=== PATIENT | female | born 1995 | race Two or more races ===

== ENCOUNTER 2016-12-12 10:37 | Emergency (ER) | payer SELFPAY ==
[~2016-12-12] VITALS: Ht 154.9 cm; Wt 58.1 kg
[2016-12-12 11:35] LABS: BILIRUBIN,URINE NEGATIVE (NEG); GLUCOSE,URINE NEGATIVE (NEG); NITRITE,URINE NEGATIVE (NEG); PROTEIN,URINE NEGATIVE (NEG-TRACE); UROBILINOGEN,URINE 0.2 mg/dL (0.2 mg/dL)
[2016-12-12 11:38] LABS: BASO # 0.1 x10^3/uL (0.0-0.2); BASO % 1 % (0-3); EOS % 3 % (0-3); HEMATOCRIT 36.3 % (36.0-47.0); HEMOGLOBIN 11.8 g/dL (12.0-15.5); LYMPH # 1.8 x10^3/uL (1.0-4.8); LYMPH % 23 % (24-48); MEAN CORPUSCULAR HEMOGLOBIN 29 pg (25-35); MEAN CORPUSCULAR HGB CONC 33 g/dL (31-37); MEAN CORPUSCULAR VOLUME 88 fL (79-100); MONO % 7 % (0-9); NEUT % 67 % (31-73); PLATELET COUNT 252 x10^3/uL (140-400); RED BLOOD COUNT 4.11 x10^6/uL (3.50-5.40); RED CELL DISTRIBUTION WIDTH 14.3 % (11.5-14.5)
[2016-12-12 11:52] LABS: CREATININE 0.6 mg/dL (0.6-1.0); GFR 126.2
[2016-12-12 11:56] VITALS: BP 103/68
[2016-12-12 11:58] LABS: ALBUMIN 3.7 g/dL (3.4-5.0); ALBUMIN/GLOBULIN RATIO 1.1 (1.0-1.7); TOTAL BILIRUBIN 0.3 mg/dL (0.2-1.0); TOTAL PROTEIN 7.1 g/dL (6.4-8.2)
[2016-12-12] MEDS ORDERED: IV NORMAL SALINE 1000ML BAG 1,000 ML IV ONE (12:00)
[2016-12-12 12:17] LABS: BACTERIA,URINE 0 /HPF (0-FEW); SQUAMOUS EPITHELIAL CELL,UR MOD /LPF
--- NOTE | 2016-12-12 13:56 | ED.ADGEN ---
Past Medical History Past Medical History: No Pertinent History, Other Past Surgical History: No Surgical History, Other Alcohol Use: None Drug Use: None Adult General Chief Complaint Chief Complaint: MULTIPLE COMPLAINTS HPI HPI Patient is a 21 year old female who presents with multiple medical complaints. Patient reports mild generalized headache for the past 6 days, occasional dizziness upon standing and while walking, lower abdominal pain and cramping times one week. Denies fever, chills, neck pain, stiffness, rash, sinus pain, tenderness, sore throat, cough, chest pain, shortness of breath, upper abdominal pain, flank pain, urinary frequency urgency. Patient's last menstrual period was over 6 months ago. She is currently rest feeding. Patient was seen by her PCP earlier this morning referred to the ED for further evaluation. Review of Systems Review of Systems ROS as per HPI Current Medications Current Medications Current Medications Medications (Trade) Dose Ordered Sig/Emile Start Time Stop Time Status Last Admin Dose Admin Sodium Chloride 1,000 ml @ 1,000 mls/hr 1X ONCE 12/12/16 12:00 12/12/16 12:59 DC 12/12/16 12:00 1,000 MLS/HR Allergies Allergies Allergies Coded Allergies Type Severity Reaction Last Updated Verified No Known Drug Allergies 01/26/14 No Physical Exam Physical Exam Constitutional: Well developed, well nourished, no acute distress, non-toxic appearance. HENT: Normocephalic, atraumatic, bilateral external ears normal, oropharynx moist, no oral exudates, nose normal. Eyes: PERRL, EOM. Neck: Normal range of motion, no tenderness, supple. Cardiovascular:Heart rate regular rhythm, no murmur. Lungs & Thorax: Bilateral breath sounds clear to auscultation. Abdomen: Bowel sounds normal, soft, nonspecific lower abdominal pain,tenderness. Skin: Warm, dry. Back: No tenderness. Extremities: No tenderness. Neurologic: Alert and oriented X 3, cranial nerves II through XII grossly intact , normal motor function, normal sensory function, no focal deficits noted. Psychologic: Affect normal, judgement normal, mood normal. Current Patient Data Vital Signs Vital Signs Date Time Temp Pulse Resp B/P (MAP) Pulse Ox O2 Delivery O2 Flow Rate FiO2 12/12/16 11:56 72 18 103/68 (80) 100 Room Air 12/12/16 11:05 97.8 97.8 Lab Values Laboratory Tests Test 12/12/16 10:13 12/12/16 10:55 12/12/16 11:30 POC Urine HCG, Qualitative Hcg negative (Negative) Urine Collection Type Unknown Urine Color Yellow Urine Clarity Clear Urine pH 7.0 Urine Specific [place] 1.020 Urine Protein Negative mg/dL (NEG-TRACE) Urine Glucose (UA) Negative mg/dL (NEG) Urine Ketones (Stick) Negative mg/dL (NEG) Urine Blood Negative (NEG) Urine Nitrite Negative (NEG) Urine Bilirubin Negative (NEG) Urine Urobilinogen Dipstick 0.2 mg/dL (0.2 mg/dL) Urine Leukocyte Esterase Negative (NEG) Urine RBC 1-2 /HPF (0-2) Urine WBC 1-4 /HPF (0-4) Urine Squamous Epithelial Cells Mod /LPF Urine Bacteria 0 /HPF (0-FEW) Urine Mucus Mod /LPF White Blood Count 8.0 x10^3/uL (4.0-11.0) Red Blood Count 4.11 x10^6/uL (3.50-5.40) Hemoglobin 11.8 g/dL (12.0-15.5) L Hematocrit 36.3 % (36.0-47.0) Mean Corpuscular Volume 88 fL (79-100) Mean Corpuscular Hemoglobin 29 pg (25-35) Mean Corpuscular Hemoglobin Concent 33 g/dL (31-37) Red Cell Distribution Width 14.3 % (11.5-14.5) Platelet Count 252 x10^3/uL (140-400) Neutrophils (%) (Auto) 67 % (31-73) Lymphocytes (%) (Auto) 23 % (24-48) L Monocytes (%) (Auto) 7 % (0-9) Eosinophils (%) (Auto) 3 % (0-3) Basophils (%) (Auto) 1 % (0-3) Neutrophils # (Auto) 5.3 x10^3uL (1.8-7.7) Lymphocytes # (Auto) 1.8 x10^3/uL (1.0-4.8) Monocytes # (Auto) 0.6 x10^3/uL (0.0-1.1) Eosinophils # (Auto) 0.2 x10^3/uL (0.0-0.7) Basophils # (Auto) 0.1 x10^3/uL (0.0-0.2) Sodium Level 140 mmol/L (136-145) Potassium Level 4.0 mmol/L (3.5-5.1) Chloride Level 105 mmol/L (98-107) Carbon Dioxide Level 29 mmol/L (21-32) Anion Gap 6 (6-14) Blood Urea Nitrogen 12 mg/dL (7-20) Creatinine 0.6 mg/dL (0.6-1.0) Estimated GFR (Cockcroft-Gault) 126.2 BUN/Creatinine Ratio 20 (6-20) Glucose Level 91 mg/dL (70-99) Calcium Level 9.0 mg/dL (8.5-10.1) Total Bilirubin 0.3 mg/dL (0.2-1.0) Aspartate Amino Transferase (AST) 17 U/L (15-37) Alanine Aminotransferase (ALT) 19 U/L (14-59) Alkaline Phosphatase 128 U/L (46-116) H Total Protein 7.1 g/dL (6.4-8.2) Albumin 3.7 g/dL (3.4-5.0) Albumin/Globulin Ratio 1.1 (1.0-1.7) Laboratory Tests 12/12/16 11:30 Laboratory Tests 12/12/16 11:30 EKG EKG [] Radiology/Procedures Radiology/Procedures [] Course & Med Decision Making Course & Med Decision Making Pertinent Labs and Imaging studies reviewed. (See chart for details) [Multiple nonspecific complaints. Headache headache without neurologic compromise. This is not the worst headache of the patient's life. Patient also reports dizziness described as feeling off balance but does not arise symptoms. Dizziness was not described as vertiginous and is not worse with position change. Nonspecific lower abdominal pain with recent constipation. Patient's vital signs stable. Blood work is reassuring. IV fluids given with some improvement. Recommend continued supportive care with PCP follow-up in 2-3 days. Return precautions reviewed. Patient verbalizes understanding agreement discharge instructions prior to departure.] Dragon Disclaimer Dragon Disclaimer This electronic medical record was generated, in whole or in part, using a voice recognition dictation system. KERRI MEYER DO Dec 12, 2016 13:56
== END 2016-12-12 14:01 | disposition home or self-care (01) ==
LOC: ER 10:47
DX: R51 Headache (principal); R42 Dizziness and giddiness; R10.30 Lower abdominal pain, unspecified
CPT/HCPCS: 36415; 80053; 81001; 81025; 85027; 96360; 99284; J7030

== ENCOUNTER 2017-10-01 06:27 | Observation (INO) | payer SELFPAY ==
[2017-10-01] MEDS ORDERED: IV RINGERS,LACTATED 1000ML 1,000 ML IV (07:00)
[2017-10-01 07:03] LABS: BILIRUBIN,URINE NEGATIVE (NEG); CLARITY,URINE CLEAR; COLOR,URINE YELLOW; GLUCOSE,URINE NEGATIVE (NEG); NITRITE,URINE NEGATIVE (NEG); PROTEIN,URINE NEGATIVE (NEG-TRACE); UROBILINOGEN,URINE 0.2 mg/dL (0.2 mg/dL)
[2017-10-01 07:38] LABS: BACTERIA,URINE FEW /HPF (0-FEW); RBC,URINE 0 /HPF (0-2); SQUAMOUS EPITHELIAL CELL,UR MANY /LPF; WBC,URINE 20-40 /HPF (0-4)
[2017-10-01] MEDS: hydrOXYzine PAMOATE 25 MG CAPSULE PO (10:01)
== END 2017-10-01 11:08 | disposition home or self-care (01) ==
LOC: 3 SO LND 06:27
DX: O62.9 Abnormality of forces of labor, unspecified (principal); Z3A.38 38 weeks gestation of pregnancy
CPT/HCPCS: 81001; 87086; G0378; G0379; Q0177

== ENCOUNTER 2017-10-08 02:19 | Inpatient (IN) | payer SELFPAY ==
[2017-10-08] MEDS ORDERED: IV RINGERS,LACTATED 1000ML 1,000 ML IV (02:30)
[2017-10-08 02:53] LABS: BILIRUBIN,URINE NEGATIVE (NEG); CLARITY,URINE CLEAR; COLOR,URINE YELLOW; GLUCOSE,URINE NEGATIVE (NEG); NITRITE,URINE NEGATIVE (NEG); PH,URINE 6.5; PROTEIN,URINE NEGATIVE (NEG-TRACE); UROBILINOGEN,URINE 0.2 mg/dL (0.2 mg/dL)
[2017-10-08 03:30] LABS: BACTERIA,URINE MANY /HPF (0-FEW); SQUAMOUS EPITHELIAL CELL,UR MANY /LPF; WBC,URINE TNTC /HPF (0-4)
[2017-10-08] MEDS ORDERED: MAG HYDROX/ALUMINUM HYD/SIMETH 30 ML ORAL.SUSP PO ×2 (04:30→07:30)
[2017-10-08] MEDS ORDERED: BUTORPHANOL 2 MG/ML VIAL. IV (04:30)
[2017-10-08] MEDS ORDERED: CITRIC ACID/SODIUM CITRATE 30 ML SOLUTION. PO (04:30)
[2017-10-08] MEDS ORDERED: OXYTOCIN 30 UNIT/500 ML PREMIX 500 ML IV ×2 (04:30→07:30)
[2017-10-08] MEDS ORDERED: TERBUTALINE 1 MG/ML VIAL. SQ (04:30)
[2017-10-08] MEDS ORDERED: ONDANSETRON PF 4 MG/2 ML VIAL. IV (04:30)
[2017-10-08] MEDS ORDERED: LIDOCAINE 1% PF 30 ML VIAL. INJ (04:30)
[2017-10-08] MEDS ORDERED: 0.9 % SODIUM CHLORIDE 10 ML DISP.SYRIN. IV ×2 (04:30→07:30)
[2017-10-08] MEDS: IV RINGERS,LACTATED 1000ML 1,000 ML IV (04:42)
[2017-10-08 05:09] LABS: ADD MAN DIFF? NO
[2017-10-08 05:18] LABS: BASO % 1 % (0-3); EOS # 0.1 x10^3/uL (0.0-0.7); EOS % 1 % (0-3); HEMATOCRIT 32.3 % (36.0-47.0); HEMOGLOBIN 10.7 g/dL (12.0-15.5); LYMPH # 1.8 x10^3/uL (1.0-4.8); LYMPH % 24 % (24-48); MEAN CORPUSCULAR HEMOGLOBIN 27 pg (25-35); MEAN CORPUSCULAR HGB CONC 33 g/dL (31-37); MEAN CORPUSCULAR VOLUME 81 fL (79-100); MONO # 0.5 x10^3/uL (0.0-1.1); MONO % 6 % (0-9); NEUT # 5.1 x10^3uL (1.8-7.7); NEUT % 68 % (31-73); PLATELET COUNT 246 x10^3/uL (140-400); RED BLOOD COUNT 3.98 x10^6/uL (3.50-5.40); WHITE BLOOD COUNT 7.5 x10^3/uL (4.0-11.0)
[2017-10-08] MEDS: OXYTOCIN 30 UNIT/500 ML PREMIX 500 ML IV (06:29)
[2017-10-08] MEDS: fentaNYL PF VIAL 100 MCG/2 ML VIAL IV (06:29)
[2017-10-08] MEDS ORDERED: ACETAMINOPHEN 325 MG TABLET. PO (07:30)
[2017-10-08] MEDS ORDERED: MAGNESIUM HYDROXIDE 2,400 MG/30 ML ORAL.SUSP. PO (07:30)
[2017-10-08] MEDS ORDERED: SIMETHICONE 80 MG TAB.CHEW PO (07:30)
[2017-10-08] MEDS ORDERED: diphenhydrAMINE HCL 25 MG CAPSULE PO (07:30)
[2017-10-08] MEDS ORDERED: MMR per PROTOCOL. MC (07:30)
[2017-10-08] MEDS ORDERED: ZOLPIDEM 5 MG TABLET. PO (07:30)
[2017-10-08] MEDS ORDERED: HYDROCORTISONE 1% TOPICAL OINTMENT 30GM TUBE. TP (07:30)
[2017-10-08] MEDS ORDERED: IBUPROFEN 800 MG TABLET. PO (07:30)
[2017-10-08] MEDS ORDERED: PHENYLEPH/MINERAL OIL/PETROLAT RECTAL OINTMENT 28GM TUBE. RC (07:30)
[2017-10-08] MEDS: IBUPROFEN 800 MG TABLET. PO ×2 (07:36→13:49)
[2017-10-08] MEDS: ACETAMINOPHEN 325 MG TABLET. PO (18:50)
[2017-10-08] MEDS: DOCUSATE SODIUM 100 MG CAPSULE. PO (20:17)
[2017-10-08] MEDS: oxyCODONE/APAP 5/325 1 TAB TABLET PO (20:19)
[2017-10-09] MEDS: IBUPROFEN 800 MG TABLET. PO ×4 (00:24→18:26)
[2017-10-09] MEDS: BENZOCAINE 20% TOPICAL AEROSOL SPRAY 57GM CAN. TP (00:46)
[2017-10-09 07:15] LABS: RPR Non Reactive (Non Reactive)
[2017-10-09 08:22] LABS: ADD MAN DIFF? NO
[2017-10-09 08:31] LABS: BASO # 0.1 x10^3/uL (0.0-0.2); BASO % 1 % (0-3); EOS # 0.1 x10^3/uL (0.0-0.7); EOS % 1 % (0-3); HEMATOCRIT 29.3 % (36.0-47.0); HEMOGLOBIN 9.7 g/dL (12.0-15.5); LYMPH # 2.2 x10^3/uL (1.0-4.8); LYMPH % 27 % (24-48); MEAN CORPUSCULAR HEMOGLOBIN 27 pg (25-35); MEAN CORPUSCULAR HGB CONC 33 g/dL (31-37); MEAN CORPUSCULAR VOLUME 82 fL (79-100); MONO # 0.5 x10^3/uL (0.0-1.1); MONO % 6 % (0-9); NEUT # 5.4 x10^3uL (1.8-7.7); NEUT % 65 % (31-73); PLATELET COUNT 210 x10^3/uL (140-400); RED BLOOD COUNT 3.56 x10^6/uL (3.50-5.40); RED CELL DISTRIBUTION WIDTH 14.8 % (11.5-14.5); WHITE BLOOD COUNT 8.4 x10^3/uL (4.0-11.0)
[2017-10-09] MEDS: FERROUS SULFATE 325 MG TABLET. PO (09:47)
[2017-10-09] MEDS: DOCUSATE SODIUM 100 MG CAPSULE. PO (09:47)
[2017-10-09] MEDS: oxyCODONE/APAP 5/325 1 TAB TABLET PO (21:26)
[2017-10-10] MEDS: IBUPROFEN 800 MG TABLET. PO ×3 (01:19→13:54)
[2017-10-10] MEDS: oxyCODONE/APAP 5/325 1 TAB TABLET PO (07:30)
[2017-10-10] MEDS: FERROUS SULFATE 325 MG TABLET. PO (07:30)
[2017-10-10] MEDS: DOCUSATE SODIUM 100 MG CAPSULE. PO (07:30)
== END 2017-10-10 14:35 | disposition home or self-care (01) | DRG 775 ==
LOC: 3 SO LND 02:19 → 3 NORTH 09:52
PROC: 10E0XZZ Delivery of Products of Conception, External Approach (ICD-10-PCS; principal; 2017-10-08)
DX: O69.81X0 Labor and delivery complicated by cord around neck, without compression, not applicable or unspecified (principal); Z37.0 Single live birth; Z3A.39 39 weeks gestation of pregnancy
CPT/HCPCS: 36415; 81001; 85025; 86593; 86850; 86900; 86901; 87086; G0378; G0379; J2590; J3010; J7120

== ENCOUNTER 2017-11-18 11:30 | Emergency (ER) | payer SELFPAY, MEDICAID ==
[2017-11-18] MEDS: ACETAMINOPHEN 500 MG TABLET PO (12:56)
[2017-11-18] MEDS: IBUPROFEN 800 MG TABLET. PO (12:57)
[2017-11-18] MEDS: LIDOCAINE 1% PF 2 ML VIAL. INJ (12:58)
[2017-11-18] MEDS: cefTRIAXone IM 1 GM VIAL IM (13:00)
== END 2017-11-18 13:47 | disposition home or self-care (01) ==
LOC: ER 11:30
DX: N61.0 Mastitis without abscess (principal)
CPT/HCPCS: 96372; 99284; J0696

== ENCOUNTER 2018-12-13 08:01 | Emergency (ER) | payer SELFPAY ==
[~2018-12-13] VITALS: Ht 154.9 cm; Wt 58.2 kg
[~2018-12-13 08:01] MED LIST: CEPH500T PO; IBUP-1060 PO
[2018-12-13] MEDS ORDERED: IV NORMAL SALINE 1000ML BAG 1,000 ML IV ONE (08:15)
[2018-12-13 08:43] LABS: BASO # 0.1 x10^3/uL (0.0-0.2); BASO % 1 % (0-3); EOS # 0.3 x10^3/uL (0.0-0.7); EOS % 6 % (0-3); HEMATOCRIT 36.4 % (36.0-47.0); HEMOGLOBIN 12.2 g/dL (12.0-15.5); LYMPH # 1.9 x10^3/uL (1.0-4.8); LYMPH % 35 % (24-48); MEAN CORPUSCULAR HEMOGLOBIN 30 pg (25-35); MEAN CORPUSCULAR HGB CONC 34 g/dL (31-37); MEAN CORPUSCULAR VOLUME 90 fL (79-100); MONO # 0.4 x10^3/uL (0.0-1.1); MONO % 8 % (0-9); NEUT # 2.8 x10^3uL (1.8-7.7); NEUT % 51 % (31-73); PLATELET COUNT 266 x10^3/uL (140-400); RED BLOOD COUNT 4.04 x10^6/uL (3.50-5.40); RED CELL DISTRIBUTION WIDTH 13.5 % (11.5-14.5); WHITE BLOOD COUNT 5.4 x10^3/uL (4.0-11.0)
--- NOTE | 2018-12-13 08:57 | PHYS DOC ---
Past Medical History Past Medical History: Other Additional Past Medical Histor: miscarriage at 20 weeks Past Surgical History: No Surgical History Alcohol Use: None Drug Use: None Adult General Chief Complaint Chief Complaint: VAGINAL BLEEDING [place] [employer] HPI Patient is a 23 year old female who presents with complaining of vaginal bleeding during . Patient is A1 with unknown LMP because of breast-feeding who had positive test at doctor office earlier this month. Patient complaining of large amount of vaginal bleeding with passing blood clots and lower abdominal cramping pain since this morning. She states that her pain 8/10 and denies chest pain, shortness of breath, fever and chills, urinary symptom. According to EMR patient had blood type O+. Review of Systems Review of Systems Constitutional: Denies fever or chills [] Eyes: Denies change in visual acuity, redness, or eye pain [] HENT: Denies nasal congestion or sore throat [] Respiratory: Denies cough or shortness of breath [] Cardiovascular: No additional information not addressed in HPI [] GI: Reports abdominal pain, denies nausea, vomiting, bloody stools or diarrhea [] : Denies dysuria or hematuria [] Musculoskeletal: Denies back pain or joint pain [] Integument: Denies rash or skin lesions [] Neurologic: Denies headache, focal weakness or sensory changes [] Endocrine: Denies polyuria or polydipsia [] All other systems were reviewed and found to be within normal limits, except as documented in this note. Current Medications Current Medications Current Medications Medications (Trade) Dose Ordered Sig/Emile Start Time Stop Time Status Last Admin Dose Admin Sodium Chloride 1,000 ml @ 1,000 mls/hr 1X ONCE 12/13/18 08:15 12/13/18 09:14 DC 12/13/18 08:33 1,000 MLS/HR Allergies Allergies Allergies Coded Allergies Type Severity Reaction Last Updated Verified No Known Drug Allergies 01/26/14 No Physical Exam Physical Exam Constitutional: Well developed, well nourished, mild distress, non-toxic appearance. [] HENT: Normocephalic, atraumatic, oropharynx moist. Eyes: PERRLA, EOMI, conjunctiva normal, no discharge. [] Neck: Normal range of motion, no tenderness, supple, no stridor. [] Cardiovascular:Heart rate regular rhythm, no murmur [] Lungs & Thorax: Bilateral breath sounds clear to auscultation [] Abdomen: Bowel sounds normal, soft, no tenderness, no masses, no pulsatile masses. [] Skin: Warm, dry, no erythema, no rash. [] Back: No tenderness, no CVA tenderness. [] Extremities: No tenderness, no cyanosis, no clubbing, ROM intact, no edema. [] Neurologic: Alert and oriented X 3, normal motor function, normal sensory function, no focal deficits noted. [] Psychologic: Affect normal, judgement normal, mood normal. [] Current Patient Data Vital Signs Vital Signs Date Time Temp Pulse Resp B/P (MAP) Pulse Ox O2 Delivery O2 Flow Rate FiO2 12/13/18 08:34 77 16 109/57 (74) 98 Room Air 12/13/18 08:08 98.5 98.5 Lab Values Laboratory Tests Test 12/13/18 08:31 White Blood Count 5.4 x10^3/uL (4.0-11.0) Red Blood Count 4.04 x10^6/uL (3.50-5.40) Hemoglobin 12.2 g/dL (12.0-15.5) Hematocrit 36.4 % (36.0-47.0) Mean Corpuscular Volume 90 fL (79-100) Mean Corpuscular Hemoglobin 30 pg (25-35) Mean Corpuscular Hemoglobin Concent 34 g/dL (31-37) Red Cell Distribution Width 13.5 % (11.5-14.5) Platelet Count 266 x10^3/uL (140-400) Neutrophils (%) (Auto) 51 % (31-73) Lymphocytes (%) (Auto) 35 % (24-48) Monocytes (%) (Auto) 8 % (0-9) Eosinophils (%) (Auto) 6 % (0-3) H Basophils (%) (Auto) 1 % (0-3) Neutrophils # (Auto) 2.8 x10^3uL (1.8-7.7) Lymphocytes # (Auto) 1.9 x10^3/uL (1.0-4.8) Monocytes # (Auto) 0.4 x10^3/uL (0.0-1.1) Eosinophils # (Auto) 0.3 x10^3/uL (0.0-0.7) Basophils # (Auto) 0.1 x10^3/uL (0.0-0.2) Maternal Serum HCG Beta Subunit < 1 mIU/mL (0-5) Laboratory Tests 12/13/18 08:31 EKG EKG [] Radiology/Procedures Radiology/Procedures [facility] [address] [place] [address] IMAGING REPORT Signed PATIENT: LAQUITA STOVER ACCOUNT: [id number] : 1995 LOCATION: ER AGE: 23 SEX: F EXAM STATUS: REG ER ORD. PHYSICIAN: DEREK AGRAWAL MD REASON: heavy vaginal bleeding, unknown age of , HCG <1 PROCEDURE: PELVIS W/TV Pelvic ultrasound to include transabdominal and transvaginal imaging 12/13/2018 CLINICAL HISTORY: Heavy vaginal bleeding. TECHNIQUE: Using the distended urinary bladder as a sonographic window, a real-time ultrasound examination of the pelvis was performed. Additionally in an attempt to better evaluate the uterus and adnexa, a transvaginal ultrasound study was performed. Multiple images were obtained. FINDINGS: The uterus is within normal limits in size and echogenicity. It measures 7.8 x 5.2 x 3.9 cm in longitudinal, transverse, and AP dimensions. No focal abnormality of the uterus is seen. The endometrial echo complex measures 7 mm in thickness which is within normal limits. Both ovaries are within normal limits in size and echogenicity. The right ovary measures 3.1 x 2.5 x 1.4 cm in size. The left ovary measures 3.0 x 1.9 x 1.9 cm in size. No adnexal mass is seen. A small amount of free fluid is seen within the pelvis. IMPRESSION: Small amount of free fluid is seen within the pelvis. Otherwise negative study. Electronically signed by: Efren Bear MD (12/13/2018 9:45 AM) [id number] DICTATED and SIGNED BY: EFREN BEAR MD DATE: 12/13/18 0945 Course & Med Decision Making Course & Med Decision Making Pertinent Labs and Imaging studies reviewed. (See chart for details) Evaluation of patient in ER showed 23-year-old female patient complaining of vaginal bleeding during with positive doctor of this test. Patient had potential seizure of less than 1 with unremarkable pelvic ult rasound. She was informed with negative test and was advised to follow-up with her [facility] as needed. Dragon Disclaimer Dragon Disclaimer This electronic medical record was generated, in whole or in part, using a voice recognition dictation system. Departure Departure Impression: Primary Impression: Heavy menstrual bleeding Additional Impression: Negative test Disposition: HOME, SELF-CARE Referrals: NO PCP (PCP) Patient Instructions: Abnormal Uterine Bleeding Additional Instructions: Drink plenty of liquids Follow-up with your primary care physician in 3-5 days Return to ER if not getting better Scripts Ibuprofen (IBUPROFEN) 600 Mg Tablet 600 MG PO PRN Q6HRS PRN for PAIN, #20 TAB take with food or milk Prov: DEREK AGRAWAL MD 12/13/18 Problem Qualifiers Primary Impression: Heavy menstrual bleeding Menorrahagia type: with onset of menstrual periods Qualified Codes: N92.2 - Excessive menstruation at puberty DEREK AGRAWAL MD Dec 13, 2018 08:57
--- NOTE | 2018-12-13 09:48 | RAD ---
Pelvic ultrasound to include transabdominal and transvaginal imaging 12/13/2018 CLINICAL HISTORY: Heavy vaginal bleeding. TECHNIQUE: Using the distended urinary bladder as a sonographic window, a real-time ultrasound examination of the pelvis was performed. Additionally in an attempt to better evaluate the uterus and adnexa, a transvaginal ultrasound study was performed. Multiple images were obtained. FINDINGS: The uterus is within normal limits in size and echogenicity. It measures 7.8 x 5.2 x 3.9 cm in longitudinal, transverse, and AP dimensions. No focal abnormality of the uterus is seen. The endometrial echo complex measures 7 mm in thickness which is within normal limits. Both ovaries are within normal limits in size and echogenicity. The right ovary measures 3.1 x 2.5 x 1.4 cm in size. The left ovary measures 3.0 x 1.9 x 1.9 cm in size. No adnexal mass is seen. A small amount of free fluid is seen within the pelvis. IMPRESSION: Small amount of free fluid is seen within the pelvis. Otherwise negative study. Electronically signed by: Efren Flores MD (12/13/2018 9:45 AM) [id number]
[2018-12-13] MEDS ORDERED: IBUP-1007 PO (10:10)
[2018-12-13 10:26] VITALS: BP 125/73
== END 2018-12-13 10:28 | disposition home or self-care (01) ==
LOC: ER 08:01
DX: N92.0 Excessive and frequent menstruation with regular cycle (principal)
CPT/HCPCS: 36415; 76830; 76856; 84702; 85025; 99285; J7030